=== PATIENT | male | born 1995 | race Caucasian/White ===

== ENCOUNTER 2021-06-15 22:40 | Emergency (ER) | payer OTHER ==
[~2021-06-15] VITALS: Ht 175.3 cm; Wt 104.3 kg
[2021-06-15] MEDS ORDERED: BUSPIRONE HCL5 GM (22:46)
[2021-06-16] MEDS ORDERED: XANAX 0.5 MG0.5 M1 PO (00:06)
[2021-06-16 00:12] VITALS: BP 135/90
--- NOTE | 2021-06-16 13:53 | EKG ---
[place] [address] ELECTROCARDIOGRAM REPORT Name: ANSELMO REYNOSO Room: [facility]#: [id number] Admission: 06/15/21 Attend Phys: Discharge: 06/16/21 Date of : [birth year] Date of Service: 06/15/212239 Report #: [id number] THIS REPORT FOR: //name// [facility] ED Test Date: 2021-06-15 Test Time: 22:40:20 Pat Name: ANSELMO REYNOSO Department: Room: Gender: Placement Interviewer: [facility] : 1995 Requested By: Lindsay Edgar Order Number: [id number] Laura MD: David Villagran Measurements Intervals Opp Rate: 113 P: 18 MT: 171 QRS: 54 QRSD: 117 T: 74 QT: 309 QTc: 424 Interpretive Statements Sinus tachycardia Nonspecific intraventricular conduction delay Nonspecific ST-T abnormalities Baseline artifact Electronically Signed On 06-16-2021 13:53:17 [employer] by David Villagran [email or web address] <ELECTRONICALLY SIGNED> By: David Villagran MD, [facility] 06/16/21 [id number] 39 David Villagran MD, FACC /EPI
== END 2021-06-16 00:13 | disposition home or self-care (01) ==
LOC: M.ERS 22:40
DX: F41.9 Anxiety disorder, unspecified (principal)